=== PATIENT | male | born 1985 | race Caucasian/White ===

== ENCOUNTER 2019-11-27 09:13 | Emergency (ER) | payer OTHER, SELFPAY ==
--- NOTE | ~2019-11-27 | XR_ITS ---
EXAMINATION: XR chest 2V 11/27/2019 09:34 INDICATION: Shortness of breath. Bilateral hand numbness. PROCEDURE: 2 view chest COMPARISON: No prior studies for comparison. FINDINGS: The lungs are clear. The cardiomediastinal silhouette is within normal limits. There are no pleural effusions. There is no pneumothorax suspected. IMPRESSION: 1: NO ACUTE CARDIOPULMONARY DISEASE. Reviewed, dictated and finalized at location A.
[2019-11-27 09:17] VITALS: BP 188/94; PULSE 100; RESP 24; TEMP 36.1; O2SAT 100
--- NOTE | 2019-11-27 09:26 | ECG_ITS ---
Measurements Intervals Only Rate: 85 P: 75 [place]: 145 QRS: 14 QRSD: 118 T: 37 QT: 346 QTc: 412 Interpretive Statements SINUS RHYTHM POSSIBLE LEFT ATRIAL ENLARGEMENT INCOMPLETE RIGHT BUNDLE BRANCH BLOCK BASELINE ARTIFACT- I, II, AVR, AVL, AVF BORDERLINE ECG Electronically Signed On 11-27-2019 9:32:01 CDT by Gaudencio Vera D.O.
[2019-11-27 09:35] LABS: Basophils Percent Auto 0.4 % (0.2-1.2); Eosinophils Absolute Auto 0.1 K/mm3 (0-0.3); Eosinophils Percent Auto 1.6 % (0-4.4); Hematocrit 46.5 % (42.0-52.0); Hemoglobin 15.5 g/dL (14.0-18.0); Immature Granulocyte Absolute 0.01 K/mm3 (0.00-0.031); Immature Granulocyte Percent A 0.2 % (0-0.5); Lymphocytes Absolute Auto 1.91 K/mm3 (0.9-3.2); Lymphocytes Percent Auto 34.8 % (18.3-44.2); Mean Corpuscular HGB Conc 33.3 g/dl (32-36); Mean Corpuscular Hemoglobin 30.7 pg (26-34); Mean Corpuscular Volume 92.1 fl (80-100); Mean Platelet Volume 9.5 fl (7.4-10.4); Monocytes Absolute Auto 0.6 K/mm3 (0.1-0.6); Monocytes Percent Auto 10.4 % (2.6-8.5); Neutrophils Absolute Auto 2.9 K/mm3 (1.3-6.7); Neutrophils Percent Auto 52.6 % (45.5-73.1); Platelet Count Result 264 k/mm3 (150-375); Red Blood Count 5.05 M/mm3 (4.6-6.20); Red Cell Distribution Width 11.9 % (11.5-14.5); White Blood Count 5.5 K/mm3 (4.5-10.0)
--- NOTE | 2019-11-27 09:37 | PC.NURSE ---
Patient to radiology at this time.
--- NOTE | 2019-11-27 09:44 | ED.ANXIETY ---
HPI - Anxiety General Chief Complaint: Anxiety Stated Complaint: numbness Time Seen by Provider: 11/27/19 09:43 Source: patient and RN notes reviewed Mode of arrival: ambulatory Limitations: no limitations History of Present Illness HPI narrative: A 34 y/o male presents to the ED with BUE tingling beginning roughly 30 minutes [employer]. He states that he was driving when he began to have BUE tingling that radiated into his face and chest. He reports associated SOB and that he had to casing puller to let his friend drive. He notes that his SOB has resolved and that he is now only having tingling in his EB fingers. He denies any CP, fevers, sore throat, cough, rhinorrhea, N/V/D, or ABD pain. MD complaint: anxiety Symptoms: dyspnea and extremity numbness/tingling (BUE that radiated into his face and chest) Quality: improving Place: other (driving) Provoking factors: none known Associated symptoms: denies other symptoms Related Data Home Medications Medication Instructions Recorded Confirmed losartan 11/27/19 Allergies Allergy/AdvReac Type Severity Reaction Status Date / Time No Known Allergies Allergy Verified 11/27/19 09:23 Review of Systems Review of Systems: All systems reviewed & are unremarkable except as noted in HPI and below Constitutional: Constitutional: Denies fever(s) ENT: Denies nasal discharge and Denies sore throat Cardiovascular: Cardiovascular: Denies chest pain Respiratory: Respiratory: Denies cough and Reports dyspnea (resolved) Gastrointestinal: Gastrointestinal: Denies abdominal pain, Denies diarrhea, Denies nausea and Denies vomiting Neurologic: Reports tingling (to BUE that radiated into his chest and face. Now only in his BE fingers) PMFSH Past Medical History Medical History (Updated 11/27/19 @ 11:15 by Shiloh Moreno MD) H/O: HTN (hypertension) Surgical History Surgical History (Updated 11/27/19 @ 09:53 by Malachi Brice) History of hand surgery Hx of eye surgery Social History Social History (Updated 11/27/19 @ 09:53 by Malachi Brice) Smoking status: Never smoker Gender identity (if verbalized by the patient): Male Exam Const: General: cooperative, no acute distress and alert Nutritional Appearance: well nourished Orientation/consciousness: patient oriented x3 Limitations: no limitations HENMT: Mouth: Yes lip normal and Yes moist mucous membranes Resp: Effort & Inspection: normal respiratory effort Auscultation: clear to auscultation bilaterally Cardio: Rate: regular rate Rhythm: regular rhythm GI: GI Palp: Yes Soft to palpation and No Tenderness to palpation present (GI) Auscultation: normal bowel sounds Skin: General skin exam: normal color Neuro: General: patient oriented x3 Cognition (Neuro): normal cognition Speech: normal speech Extrem: General: normal to inspection, full ROM and no clubbing, cyanosis or edema Psych: Mental Status: mental status grossly normal Affect: normal affect Attitude: cooperative Course Course Emergency Course: Patient symptoms consistent with anxiety/panic attack. Patient will be discharged home as he is currently asymptomatic. Patient advised elevated blood sugar will need to be followed up by his primary care physician. Blood pressure and respiratory rate greatly improved on reevaluation. Patient carries diagnosis of hypertension and is on medication. Vital Signs Vital signs: Vital Signs Temperature 97.0 F L 11/27/19 09:17 Pulse Rate 100 11/27/19 09:17 Respiratory Rate 24 H 11/27/19 09:17 Blood Pressure 188/94 H 11/27/19 09:17 Pulse Oximetry 100 11/27/19 09:17 Temperature 97.0 F L 11/27/19 09:17 Pulse Rate 80 11/27/19 10:35 Respiratory Rate 19 11/27/19 10:35 Blood Pressure 148/88 H 11/27/19 10:35 Pulse Oximetry 100 11/27/19 10:35 MDM - Anxiety Lab Data Attestation: I reviewed the patient's lab results. Result diagrams: 11/27/19 09:27 11/27/19 09:27
[2019-11-27 09:47] LABS: Blood Urea Nitrogen 12 mg/dL (9-20); Calcium 9.8 mg/dL (8.4-10.2); Carbon Dioxide 29 mmol/L (22-30); Chloride 96 mmol/L (98-107); Estimated CRCL calculation 152 ml/min; Estimated Glomerular Filt Rate > 60; Glucose 173 mg/dL (75-110); Potassium 3.9 mmol/L (3.4-5.0); Sodium 139 mmol/L (137-145)
[2019-11-27 10:00] VITALS: PULSE 77; RESP 18; O2SAT 100
[2019-11-27 10:35] VITALS: BP 148/88; PULSE 80; RESP 19; O2SAT 100
[2019-11-27 11:23] VITALS: BP 139/91; PULSE 82; RESP 16; O2SAT 95
== END 2019-11-27 11:24 | disposition home or self-care (01) ==
PROVIDERS: Emergency Provider Emergency Medicine
DX: F41.0 Panic disorder [episodic paroxysmal anxiety] (principal); I10 Essential (primary) hypertension; R73.9 Hyperglycemia, unspecified; I45.10 Unspecified right bundle-branch block; R94.31 Abnormal electrocardiogram [ECG] [EKG]
CPT/HCPCS: 36415; 71046; 80048; 85025; 93005; 99284